=== PATIENT | male | born 1940 | race Two or more races ===

== ENCOUNTER 2016-06-13 12:26 | Emergency (ER) | payer OTHER ==
[~2016-06-13] VITALS: Ht 170.2 cm; Wt 84.4 kg
[2016-06-13 12:43] VITALS: BP 129/78
[2016-06-13] MEDS ORDERED: KETOROLAC TROMETH 30 MG/ML 1ML VIAL IM ONE (15:00)
== END 2016-06-13 16:15 | disposition home or self-care (01) ==
LOC: ER 12:31
DX: M50.10 Cervical disc disorder with radiculopathy, unspecified cervical region (principal); G89.29 Other chronic pain; M54.5 Low back pain; Z88.2 Allergy status to sulfonamides
CPT/HCPCS: 72040; 93005; 96372; 99284; J1885